=== PATIENT | male | born 1980 | race Caucasian/White ===

== ENCOUNTER 2023-07-12 06:47 | Emergency (ER) | payer OTHER ==
[2023-07-12 06:57] VITALS: BP 134/79; PULSE 71; RESP 16; TEMP 98; BMI 22.0
[2023-07-12] MEDS ORDERED: ONDANSETRON 4 MG/2 ML VIAL ONE (08:38)
[2023-07-12] MEDS ORDERED: FAMOTIDINE 20 MG/50 ML IVPB 20 MG/50 ML MG IVPB ONE (08:38)
[2023-07-12] MEDS ORDERED: ACETAMINOPHEN INJECTION 100 ML IVPB ONE (08:38)
[2023-07-12] MEDS: ACETAMINOPHEN 1000 MG/100 ML BAG IVPB ONE (08:51)
[2023-07-12] MEDS: LACTATED RINGERS SOLUTION 1000 ML INFUS.BAG IV ONE (08:51)
[2023-07-12] MEDS: FAMOTIDINE 20 MG/50 ML IVPB 20 MG/50 ML MG IVPB ONE (08:51)
[2023-07-12] MEDS: ONDANSETRON 4 MG/2 ML VIAL IVPUSH ONE (08:52)
[2023-07-12 08:56] LABS: BASO % 0.7 % (0-2.0); EOS % 1.5 % (0-4.5); HEMATOCRIT 44.9 % (35.4-49); HEMOGLOBIN 15.1 GM/dL (11.7-16.9); LYMPH % 10.1 % (8-40); MCH 29.4 pg (25.7-33.7); MCHC 33.7 g/dl (32.0-35.9); MEAN CELL VOLUME 87.2 fl (80-96); MEAN PLT VOLUME 9.1 fl (7.5-11.1); MONO % 6.2 % (3.8-10.2); NEUT % 81.5 % (42.8-82.8); PLATELET COUNT 146 10^3/uL (134-434); RBC 5.15 M/mm3 (4.00-5.60); RDW 13.5 % (11.9-15.9)
[2023-07-12 09:20] LABS: POTASSIUM 4.2 mmol/L (3.5-5.1)
[2023-07-12 09:22] LABS: CALCIUM 9.3 mg/dL (8.5-10.1)
[2023-07-12 09:23] LABS: BLOOD UREA NITROGEN 17.1 mg/dL (7-18); MAGNESIUM 2.3 mg/dL (1.8-2.4)
[2023-07-12 09:26] LABS: CREATININE 0.8 mg/dL (0.55-1.3)
[2023-07-12 09:27] LABS: BILIRUBIN,TOTAL 1.3 mg/dL (0.2-1); TOT PROT 6.7 g/dl (6.4-8.2)
[2023-07-12 09:42] LABS: EPI CELLS 2 /uL (0-25.1); HYALINE CASTS 1 /uL (0-3.1); PH,URINE 5.5 (5.0-8.0); URINE APPEARANCE CLEAR; URINE BACTERIA 10 /uL (0-1359); URINE BILIRUBIN NEGATIVE (NEGATIVE); URINE COLOR YELLOW; URINE GLUCOSE (UA) NEGATIVE (NEGATIVE); URINE KETONE NEGATIVE (NEGATIVE); URINE LEUK ESTERASE TRACE (NEGATIVE); URINE NITRITE NEGATIVE (NEGATIVE); URINE PROTEIN TRACE (NEGATIVE); URINE RBC 174 /uL (0-23.9); URINE UROBILINOGEN 0.2 mg/dL (0.2-1.0); URINE WBC 60 /uL (0-25.8)
[2023-07-12] MEDS ORDERED: KETOROLAC TROMETHAMINE 15 MG/ML VIAL ONE (11:32)
[2023-07-12] MEDS: KETOROLAC TROMETHAMINE 15 MG/ML VIAL IVPUSH ONE (11:35)
== END 2023-07-12 12:29 | disposition home or self-care (01) ==
LOC: JER 06:47
PROC: 3E033GC Introduction of Other Therapeutic Substance into Peripheral Vein, Percutaneous Approach (ICD-10-PCS; principal; 2023-07-12)
PROC: 3E033GC Introduction of Other Therapeutic Substance into Peripheral Vein, Percutaneous Approach (ICD-10-PCS; 2023-07-12)
PROC: 3E033NZ Introduction of Analgesics, Hypnotics, Sedatives into Peripheral Vein, Percutaneous Approach (ICD-10-PCS; 2023-07-12)
PROC: 3E0333Z Introduction of Anti-inflammatory into Peripheral Vein, Percutaneous Approach (ICD-10-PCS; 2023-07-12)
DX: N20.0 Calculus of kidney (principal); R10.32 Left lower quadrant pain; M54.50 Low back pain, unspecified; R11.10 Vomiting, unspecified; Z20.822 Contact with and (suspected) exposure to COVID-19
CPT/HCPCS: 0241U-QW; 36415; 74177-TC; 80053; 81003; 83690; 83735; 85025; 87086; 93005; 93010; 99285-25; J0131; Q9967